=== PATIENT | female | born 1970 | race Caucasian/White ===

== ENCOUNTER 2017-10-03 13:00 | Emergency (ER) | payer SELFPAY ==
[2017-10-03] MEDS ORDERED: Sodium Chloride 0.9% 1,000 ML IV ONE (13:54)
[2017-10-03] MEDS ORDERED: Ketorolac 30 MG/ML SDV IVPUSH ONE (13:55)
[2017-10-03] MEDS ORDERED: Sodium Chloride 0.9% 2.5 ML Syringe FLUSH PRN (13:55)
[2017-10-03] MEDS ORDERED: Ondansetron 4 MG/2 ML SDV IVPUSH ONE (13:55)
--- NOTE | 2017-10-03 14:09 | EDM.PDOC ---
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 Patient states the right ear pain started 4 days ago and is spreads across the right side of her head and eyes. She describes the pain as pounding. She reports her vision seems a little blurry and she has sensitivity to light. She denies any nausea or vomiting. No history of headaches or migraines. She denies any fevers or chills. She denies head injury. Patient rates pain 10/10 Review of systems: As per history of present illness and below otherwise all systems reviewed and negative. Past medical history: As per history of present illness and as reviewed below otherwise noncontributory. Surgical history: As per history of present illness and as reviewed below otherwise noncontributory. Social history: No reported history of drug or alcohol abuse. Family history: As per history of present illness and as reviewed below otherwise noncontributory. Physical exam: General: patient sitting comfortably in no acute distress HEENT: Atraumatic, normocephalic, pupils reactive, negative for conjunctival pallor or scleral icterus, mucous membranes moist, throat clear, neck supple, nontender, trachea midline. Lungs: Clear to auscultation, breath sounds equal bilaterally, chest nontender. Heart: S1S2, regular, negative for clicks, rubs, or JVD. Abdomen: Soft, nondistended, nontender. Negative for masses or hepatosplenomegaly. Negative for costovertebral tenderness. Pelvis: Stable nontender. Genitourinary: Deferred. Rectal: Deferred. Extremities: Atraumatic, negative for cords or calf pain. Neurovascular unremarkable. Neuro: Awake, alert, oriented. Cranial nerves II through XII unremarkable. Cerebellum unremarkable. Motor and sensory unremarkable throughout. Exam nonfocal. Notes: 1450 - patient reports pain improved to 7/10 1530 - patient states pain is 5/10 Diagnostics: [] Therapeutics: 1 L Normal Saline IV 30mg Toradol IV 4mg Zofran IV 25mg Benadryl IV Impression: Headache Plan: 1. Drink plenty of fluids and take motrin or tylenol as needed 2. Follow up with primary care provider 3. Return to ED as needed as discussed. Definitive disposition and diagnosis as appropriate pending reevaluation and review of above. right ear Pain Score (Numeric/FACES): 10 - Related Data Allergies Allergy/AdvReac Type Severity Reaction Status Date / Time No Known Allergies Allergy Verified 10/03/17 13:39 Home Meds: Home Meds . 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 ED EXAM, ENT - Physical Exam Exam: See Below (see dictation) Course - Vital Signs Last Recorded V/S: Last Vital Signs Temp 36.1 C 10/03/17 13:40 Pulse 62 10/03/17 13:40 Resp 17 10/03/17 13:40 BP 146/51 H 10/03/17 13:40 Pulse Ox 100 10/03/17 13:40 - Orders/Labs/Meds Orders: Active Orders 24 hr Category Date Time Status Sodium Chloride 0.9% [Saline Flush] Med 10/03/17 13:55 Active 10 ml FLUSH ASDIRECTED PRN Sodium Chloride 0.9% [Saline Flush] Med 10/03/17 13:55 Active 2.5 ml FLUSH ASDIRECTED PRN Saline Lock Insert [OM.PC] Stat Oth 10/03/17 13:54 Ordered Medication Orders Sodium Chloride (Saline Flush) 10 ml FLUSH ASDIRECTED PRN PRN Reason: Keep Vein Open Last Admin: 10/03/17 14:34 Dose: 10 ml Admin: 10/03/17 14:32 Dose: 10 ml Sodium Chloride (Saline Flush) 2.5 ml FLUSH ASDIRECTED PRN PRN Reason: Keep Vein Open Meds: Medications Generic Name Dose Route Start Last Admin Trade Name Freq PRN Reason Stop Dose Admin Sodium Chloride 10 ml 10/03/17 13:55 10/03/17 14:34 Saline Flush FLUSH 10 ml ASDIRECTED PRN Administration Keep Vein Open Sodium Chloride 2.5 ml 10/03/17 13:55 Saline Flush FLUSH ASDIRECTED PRN Keep Vein Open Discontinued Medications Generic Name Dose Route Start Last Admin Trade Name Tessa PRN Reason Stop Dose Admin Diphenhydramine HCl 25 mg 10/03/17 14:52 10/03/17 15:15 Benadryl IVPUSH 10/03/17 14:53 25 mg ONETIME ONE Administration Sodium Chloride 1,000 mls @ 999 mls/hr 10/03/17 13:54 10/03/17 14:33 Normal Saline IV 10/03/17 14:54 999 mls/hr STAT ONE Administration Ketorolac Tromethamine 30 mg 10/03/17 13:55 10/03/17 14:23 Toradol IVPUSH 10/03/17 13:56 30 mg ONETIME ONE Administration Ondansetron HCl 4 mg 10/03/17 13:55 10/03/17 14:23 Zofran IVPUSH 10/03/17 13:56 4 mg ONETIME ONE Administration Departure - Departure Time of Disposition: 15:31 Disposition: Home, Self-Care 01 Condition: Good Clinical Impression: Headache - Discharge Information Referrals: PCP,None [Primary Care Provider] - Forms: ED Department Discharge Additional Instructions: The following information is given to patients seen in the emergency department who are being discharged to home. This information is to outline your options for follow-up care. We provide all patients seen in our emergency department with a follow-up referral. The need for follow-up, as well as the timing and circumstances, are variable depending upon the specifics of your emergency department visit. If you don't have a primary care physician on staff, we will provide you with a referral. We always advise you to contact your personal physician following an emergency department visit to inform them of the circumstance of the visit and for follow-up with them and/or the need for any referrals to a consulting specialist. The emergency department will also refer you to a specialist when appropriate. This referral assures that you have the opportunity for follow-up care with a specialist. All of these measure are taken in an effort to provide you with optimal care, which includes your follow-up. Under all circumstances we always encourage you to contact your private physician who remains a resource for coordinating your care. When calling for follow-up care, please make the office aware that this follow-up is from your recent emergency room visit. If for any reason you are refused follow-up, please contact the [facility] Emergency Department at and asked to speak to the emergency department charge nurse. [facility] [address] [place] [id number] [facility] [address] [place] [id number] 1. Drink plenty of fluids and take motrin or tylenol as needed 2. Follow up with primary care provider 3. Return to ED as needed as discussed. - My Orders Last 24 Hours: My Active Orders 10/03/17 13:54 Saline Lock Insert [OM.PC] Stat 10/03/17 13:55 Sodium Chloride 0.9% [Saline Flush] 10 ml FLUSH ASDIRECTED PRN Sodium Chloride 0.9% [Saline Flush] 2.5 ml FLUSH ASDIRECTED PRN - Assessment/Plan Last 24 Hours: My Active Orders 10/03/17 13:54 Saline Lock Insert [OM.PC] Stat 10/03/17 13:55 Sodium Chloride 0.9% [Saline Flush] 10 ml FLUSH ASDIRECTED PRN Sodium Chloride 0.9% [Saline Flush] 2.5 ml FLUSH ASDIRECTED PRN
[2017-10-03] MEDS: Sodium Chloride 0.9% 10 ML Syringe FLUSH PRN ×2 (14:32→14:34)
[2017-10-03] MEDS ORDERED: diphenhydrAMINE 50 MG/ML SDV IVPUSH ONE (14:52)
== END 2017-10-03 15:46 | disposition home or self-care (01) ==
LOC: MW.ED 13:00
DX: R51 Headache (principal); H92.01 Otalgia, right ear
CPT/HCPCS: 96361; 96374; 96375; 99282; J1200; J1885; J2405; J7040